=== PATIENT | male | born 1955 | race Caucasian/White ===

== ENCOUNTER 2021-11-11 10:45 | Outpatient (REF) | payer OTHER, SELFPAY ==
[2021-11-11 12:05] LABS: PSA,Total (Free>4and<10) 3.99 ng/mL (0.00-4.00)
== END 2021-11-11 10:46 | disposition home or self-care (01) ==
LOC: HO.LAB 10:45
PROVIDERS: PCP Internal Medicine; Visit Provider Urology
DX: Z12.5 Encounter for screening for malignant neoplasm of prostate (principal); R97.20 Elevated prostate specific antigen [PSA]
CPT/HCPCS: 36415; 84153

== ENCOUNTER → 2021-12-13 08:47 | Outpatient (BNVA) | payer OTHER, SELFPAY | PROVIDERS: PCP Internal Medicine; Visit Provider Urology | DX: R97.20 Elevated prostate specific antigen [PSA] (principal); N40.1 Benign prostatic hyperplasia with lower urinary tract symptoms; N13.8 Other obstructive and reflux uropathy; R33.8 Other retention of urine | CPT/HCPCS: 51798 ==

== ENCOUNTER 2022-06-08 10:47 | Outpatient (REF) | payer OTHER, SELFPAY ==
[2022-06-08 11:48] LABS: Prostate Specific Antigen 1.35 ng/mL (<0.05-4.0)
== END 2022-06-08 10:48 | disposition home or self-care (01) ==
LOC: HO.LAB 10:47
PROVIDERS: Visit Provider Urology
DX: Z12.5 Encounter for screening for malignant neoplasm of prostate (principal); N32.0 Bladder-neck obstruction
CPT/HCPCS: 36415; 84153

== ENCOUNTER 2022-12-13 09:40 | Outpatient (REF) | payer OTHER, SELFPAY ==
[2022-12-13 11:14] LABS: Prostate Specific Antigen 1.43 ng/mL (<0.05-4.0)
== END 2022-12-13 09:41 | disposition home or self-care (01) ==
LOC: HO.LAB 09:40
PROVIDERS: PCP Internal Medicine; Visit Provider Urology
DX: Z12.5 Encounter for screening for malignant neoplasm of prostate (principal); R97.20 Elevated prostate specific antigen [PSA]
CPT/HCPCS: 36415; 84153

== ENCOUNTER → 2022-12-26 13:26 | Outpatient (BNVA) | payer OTHER, SELFPAY | PROVIDERS: PCP Internal Medicine; Visit Provider Urology | DX: Z13.89 Encounter for screening for other disorder (principal) ==

== ENCOUNTER 2023-12-17 11:49 | Outpatient (REF) | payer MEDICARE, SELFPAY ==
[2023-12-17 13:06] LABS: Prostate Specific Antigen 1.37 ng/mL (<0.05-4.0)
== END 2023-12-17 11:50 | disposition home or self-care (01) ==
LOC: HO.LAB 11:49
PROVIDERS: PCP Internal Medicine; Visit Provider Urology
DX: R97.20 Elevated prostate specific antigen [PSA] (principal); Z12.5 Encounter for screening for malignant neoplasm of prostate
CPT/HCPCS: 36415; 84153

== ENCOUNTER 2023-12-25 14:19 | Outpatient (AMB) | payer BC, SELFPAY ==
--- NOTE | 2023-12-25 14:31 | MHC.OFFVIS ---
Intake Intake Visit Reasons: 1Y PSA(set)Confirmed Intake Note: Patient is Present for Follow Up PSA Urology Medication: Finasteride, Sildenafil Antibiotic Allergies:None Blood Thinners: None Allergies No Known Allergies Allergy (Verified 12/26/22 13:31) Medication List - Last Reconciled 12/25/23 by Esa Patterson MD finasteride 5 mg PO DAILY 90 days gabapentin 300 mg PO DAILY lisinopril-hydrochlorothiazide 10-12.5 mg 1 tab PO DAILY metronidazole 0.75% appl topical BID sildenafil 100 mg PO DAILY simvastatin 40 mg PO BEDTIME HPI HPI Comments History of Present Illness Details Uri Christensen is a very pleasant male. He is a patient of Dr Saavedra. He is seen for the following urologic conditions. - elevated PSA - bladder outlet obstruction PSA remains low with low-dose finasteride Prescription provided Moving up to [place] but will be coming back for medical care Elevated PSA/Abnormal AMAURY:? He presents for ?further evaluation of elevated PSA ?- stable.? Current management is?combination therapy with tamsulosin and finasteride.? Laboratory investigations include?No FH of prostate issues ?02/25 3.7, 03/27 2.6, 06/27 2.9, 06/28 3.7, 11/29 4.0, 06/01 1.3, 12/31 1.4, 01/01 1.4 ? Individualized Prostate Cancer Risk Calculator?< 5% high risk, Would like to continue with observation and understands and accepts the risks of a possible delay in diagnosis.? Therapeutic plan will be?PSA stable ?- repeat in 12m [facility] Medical History High cholesterol High blood pressure determined by examination Elevated prostate specific antigen [PSA] Review of Systems Const Denies chills and Denies fever(s) Card Reports no additional complaints and Denies syncope Resp Denies cough GI Denies abdominal pain and Denies heartburn Reports as per HPI and Denies change in libido Neuro Denies syncope Psych Denies change in libido Endo Denies change in libido Physical Exam Const General: cooperative, healthy appearing, comfortable and no acute distress Orientation/consciousness: patient oriented x3 HEENT Face and sinus: Yes normal facial exam Mouth: moist mucous membranes Neck Neck: Yes normal visual inspection, Yes full ROM and Yes trachea midline Chest Chest palpation & inspection: normal inspection of the chest Resp Effort & Inspection: normal respiratory effort, able to speak in complete sentences and no respiratory distress GI Inspection: Yes normal to inspection Back/Spine/Pelvis Cervical Spine: normal cervical lordosis Thoracic/Lumbar Spine: thoracic and lumbar spine normal to inspection Skin General skin exam: no rashes or lesions noted Neuro General: patient oriented x3, gait normal, tone normal and moves all extremities Extrem General: Yes normal to inspection and Yes capillary refill normal Assessment & Plan Assessment & Plan (1) Bladder outlet obstruction: Code(s): N32.0 - Bladder-neck obstruction (2) Incomplete emptying of bladder due to benign prostatic hyperplasia: Code(s): N40.1 - Benign prostatic hyperplasia with lower urinary tract symptoms; R33.9 - Retention of urine, unspecified (3) Elevated prostate specific antigen [PSA]: Code(s): R97.20 - Elevated prostate specific antigen [PSA] Plan 12 month follow-up Orders: Orders Prostate Specific Antigen 364 Days R97.20 - Elevated prostate specific antigen [PSA] Medications: Refilled finasteride 5 mg PO DAILY 90 days 90 tabs 1RF N13.8 - Other obstructive and reflux uropathy, N32.0 - Bladder-neck obstruction, N40.1 - Benign prostatic hyperplasia with lower urinary tract symptoms, R33.9 - Retention of urine, unspecified Patient Instructions: Imaging studies, laboratory and physical exam results were discussed and reviewed in detail. No major barriers to patient understanding were identified. An opportunity to ask questions regarding the treatment plan was provided. All questions were answered. The patient expressed understanding and agreement with the above treatment plan. The patient is aware they should contact our office by phone for worsening of their current condition or the appearance of new urologic symptoms. Compliance is encouraged with any medications and followup testing that is ordered. It is a privilege to participate in the urologic care of your patient. If you have any questions or concerns regarding treatment for the above conditions, or other urologic issues, please do not hesitate to contact me. The office telephone contact is [phone]. This note is constructed using voice recognition software. While every effort has been made to ensure accuracy public safety officer errors may have been included. Yours sincerely, Dr Esa Patterson MD, [facility] - Urology Providers of Expert, Compassionate Care for the Genitourinary System Coding Level of Care Code Est Pt Level 4 (91959) Diagnoses Bladder outlet obstruction N32.0 Incomplete emptying of bladder due to benign prostatic hyperplasia N40.1; R33.9 Elevated prostate specific antigen [PSA] R97.20
== END 2023-12-25 15:15 | disposition home or self-care (01) ==
LOC: HO.HUSH 14:19
PROVIDERS: PCP Internal Medicine; Visit Provider Urology
DX: N32.0 Bladder-neck obstruction (principal); N40.1 Benign prostatic hyperplasia with lower urinary tract symptoms; R33.9 Retention of urine, unspecified; R97.20 Elevated prostate specific antigen [PSA]
CPT/HCPCS: 99213

== ENCOUNTER → 2023-12-25 14:19 | Outpatient (BNVA) | payer BC, SELFPAY | PROVIDERS: PCP Internal Medicine; Visit Provider Urology ==

== ENCOUNTER 2025-01-27 13:09 | Outpatient (AMB) | payer BC, SELFPAY ==
--- NOTE | 2025-01-27 13:13 | A.OFFVIS_ITS ---
Intake Visit Reasons: 1y/PSA/PVR Intake Note: Pt presents to the office today for a 1 year follow up/PSA/PVR PVR: Allergies No Known Allergies Allergy (Verified 01/27/25 13:14) HPI Comments Details: Uri Christensen is a very pleasant male. He is a patient of Dr Saavedra. He is seen for the following urologic conditions. - elevated PSA - bladder outlet obstruction PSA remains low with low-dose finasteride PVR with incomplete emptying however has not tried to emptying 1+ blood but only trace He can be followed through primary care and they should just continue to check his PSA on a yearly basis Has moved up to [place] but will be coming back for medical care Elevated PSA/Abnormal AMAURY:? He presents for ?further evaluation of elevated PSA ?- stable.? Current management is?combination therapy with tamsulosin and finasteride.? Laboratory investigations include?No FH of prostate issues ?02/25 3.7, 03/27 2.6, 06/27 2.9, 06/28 3.7, 11/29 4.0, 06/01 1.3, 12/31 1.4, 01/01 1.4 ? Individualized Prostate Cancer Risk Calculator?< 5% high risk, Would like to continue with observation and understands and accepts the risks of a possible delay in diagnosis.? Therapeutic plan will be?PSA stable [facility] Medical History High cholesterol High blood pressure determined by examination Elevated prostate specific antigen [PSA] Review of Systems Const Denies chills and Denies fever(s) Card Reports no additional complaints and Denies syncope Resp Denies cough GI Denies abdominal pain and Denies heartburn Reports as per HPI and Denies change in libido Neuro Denies syncope Psych Denies change in libido Endo Denies change in libido Physical Exam Const General: cooperative, healthy appearing, comfortable and no acute distress Orientation/consciousness: patient oriented x3 HEENT Face and sinus: Yes normal facial exam Mouth: moist mucous membranes Neck Neck: Yes normal visual inspection, Yes full ROM and Yes trachea midline Chest Chest palpation & inspection: normal inspection of the chest Resp Effort & Inspection: normal respiratory effort, able to speak in complete sentences and no respiratory distress GI Inspection: Yes normal to inspection Back/Spine/Pelvis Cervical Spine: normal cervical lordosis Thoracic/Lumbar Spine: thoracic and lumbar spine normal to inspection Skin General skin exam: no rashes or lesions noted Neuro General: patient oriented x3, gait normal, tone normal and moves all extremities Extrem General: Yes normal to inspection and Yes capillary refill normal Office Procedures Post Void Residual Post Residual Void Post Void Residual (PVR): [id number] Void Residual by ultrasound Results AMB Urinalysis, Automated UA Leukoctes 0 Sal/uL Last Edit by Tali Iniguez CMA on 01/27/25 13:21 UA Nitrite Negative Last Edit by Tali Iniguez CMA on 01/27/25 13:21 UA Urobilinogen 0.2 mg/dL Last Edit by Tali Iniguez CMA on 01/27/25 13:21 UA Protein 0 mg/dL Last Edit by Tali Iniguez CMA on 01/27/25 13:21 UA pH 5.5 Last Edit by Tali Iniguez CMA on 01/27/25 13:21 UA Blood 25 Mahad/uL Last Edit by Tali Iniguez CMA on 01/27/25 13:21 UA Specific [place] 1.030 Last Edit by Tali Iniguez CMA on 01/27/25 13:21 UA Ketone Negative Last Edit by Tali Iniguez CMA on 01/27/25 13:21 UA Bilirubin 0 mg/dL Last Edit by Tali Iniguez CMA on 01/27/25 13:21 UA Glucose 0 mg/dL Last Edit by Tali Iniguez CMA on 01/27/25 13:21 Results Reviewed Results Reviewed: Laboratory Last Values Urine pH (Auto) 5.5 01/27/25 13:20 Specific [place] (Auto) 1.030 01/27/25 13:20 Urine Protein (Auto) 0 mg/dL 01/27/25 13:20 Glucose (UA)(Auto) 0 mg/dL 01/27/25 13:20 Urine Ketones (Auto) Negative 01/27/25 13:20 Urine Blood (Auto) 25 Mahad/uL 01/27/25 13:20 Urine Nitrite (Auto) Negative 01/27/25 13:20 Urine Bilirubin (Auto) 0 mg/dL 01/27/25 13:20 Urine Urobilinogen (Auto) 0.2 mg/dL 01/27/25 13:20 Leukocyte Esterase (Auto) 0 Sal/uL 01/27/25 13:20 Assessment & Plan Assessment & Plan (1) Bladder outlet obstruction: Code(s): N32.0 - Bladder-neck obstruction Category: Medical Plan Continues finasteride Check PSA yearly Orders: Orders AMB Urinalysis Automated Today N40.1 - Benign prostatic hyperplasia with lower urinary tract symptoms, R33.9 - Retention of urine, unspecified AMB Post Void Residual by ultrasound Today N40.1 - Benign prostatic hyperplasia with lower urinary tract symptoms, R33.9 - Retention of urine, unspecified Patient Instructions: This note is constructed using voice recognition software. While every effort has been made to ensure accuracy kennel assistant errors may have been included. Imaging studies, laboratory and physical exam results were discussed and reviewed in detail. No major barriers to patient understanding were identified. An opportunity to ask questions regarding the treatment plan was provided. All questions were answered. The patient expressed understanding and agreement with the above treatment plan. The patient is aware they should contact our office by phone for worsening of their current condition or the appearance of new urologic symptoms. Compliance is encouraged with any medications and followup testing that is ordered. It is a privilege to participate in the urologic care of your patient. If you have any questions or concerns regarding treatment for the above conditions, or other urologic issues, please do not hesitate to contact me. The office telephone contact is [phone]. Sincerely, Dr Esa Patterson MD, [facility] - Urology Compassionate Specialist Care for the Genitourinary System Coding Level of Care Code Est Pt Level 4 (80434) Diagnoses Bladder outlet obstruction N32.0 CPT Codes Post Residual Void - PVR CPT Code: 79029-Swcu Void Residual by ultrasound ([id number])
== END 2025-01-27 14:01 | disposition home or self-care (01) ==
LOC: HO.HUSH 13:09
PROVIDERS: PCP Internal Medicine; Visit Provider Urology
DX: N40.1 Benign prostatic hyperplasia with lower urinary tract symptoms (principal); R33.9 Retention of urine, unspecified; N32.0 Bladder-neck obstruction
CPT/HCPCS: 99214

== ENCOUNTER → 2025-01-27 13:09 | Outpatient (BNVA) | payer BC, SELFPAY | PROVIDERS: PCP Internal Medicine; Visit Provider Urology | DX: N40.1 Benign prostatic hyperplasia with lower urinary tract symptoms (principal); R33.9 Retention of urine, unspecified | CPT/HCPCS: 51798; 81003 ==